=== PATIENT | female | born 1930 | race Caucasian/White ===

== ENCOUNTER 2016-06-28 14:25 | Inpatient (IN) ==
[2016-06-28 15:05] VITALS: BMI 19.3
[2016-06-28] MEDS ORDERED: NITROSTAT SL PRN (15:25)
[2016-06-28 15:33] LABS: BASOPHILS # (AUTO) 0.1 K/uL (0-0.2); BASOPHILS % (AUTO) 0.4 % (0.0-3.0); EOSINOPHILS # (AUTO) 0.5 K/ul (0.0-0.7); EOSINOPHILS % (AUTO) 3.9 % (0.0-7.0); HEMATOCRIT 47.2 % (37.0-47.0); HEMOGLOBIN 14.5 g/dl (12.0-16.0); IMMATURE GRANULOCYTE % (AUTO) 0.8 % (0.0-5.0); LYMPHOCYTES # (AUTO) 2.2 K/uL (0.60-3.4); LYMPHOCYTES % (AUTO) 19.6 (10.0-50.0); MEAN CORPUSCULAR HEMOGLOBIN 29.1 pg (27.0-31.0); MEAN CORPUSCULAR HGB CONC 30.7 (31.8-35.4); MEAN CORPUSCULAR VOLUME 94.6 fl (81.0-99.0); MONOCYTES # (AUTO) 1.1 K/uL (0.4-2.0); NEUTROPHILS # (AUTO) 7.4 K/ul (2.0-6.9); NEUTROPHILS % (AUTO) 65.3; PLATELET COUNT 208 10^3/uL (140-440); RED BLOOD COUNT 4.99 10^6/ul (4.20-5.40)
--- NOTE | 2016-06-28 15:40 | DI ---
EXAM: CHEST FRONTAL VIEW HISTORY: Cough and shortness of breath. COMPARISON: 01/23/2015 FINDINGS: Stable cardiomegaly. Sternotomy wires are noted. Severe aortic atherosclerosis. Right- sided pacemaker unit is stable. No evidence of active congestive heart failure, pneumothorax or ple ural fluid. No definite consolidated pneumonia on this limited portable exam. IMPRESSION: No obvious acute process. Managing the patient on a clinical basis is recommended.
[2016-06-28 15:50] LABS: ALBUMIN 3.5 g/dL (3.4-5.0); ALBUMIN/GLOBULIN RATIO 0.88; ANION GAP 13.7; BILIRUBIN,TOTAL 0.77 mg/dL (0.00-1.20); BUN/CREATININE RATIO 26.22; CALCIUM 10.2 mg/dL (8.2-10.2); CREATININE 1.22 mg/dL (0.60-1.30); POTASSIUM 4.7 mmol/L (3.5-5.10); TOTAL PROTEIN 7.5 g/dL (5.8-8.1)
[2016-06-28] MEDS: ARICEPT PO SCH (16:29)
[2016-06-28] MEDS: DECADRON 4 MG/ML SDV IM SCH (16:30)
[2016-06-28] MEDS: LOVENOX SUBCUT SCH (16:31)
[2016-06-28] MEDS: ROCEPHIN 1 GM in SODIUM CHLORIDE 50 ML IV SCH (16:56)
[2016-06-28] MEDS: BYSTOLIC PO SCH (20:57)
[2016-06-28] MEDS: ATIVAN PO SCH (20:57)
[2016-06-28] MEDS: OMEGA-3 FISH OIL PO SCH (20:57)
[2016-06-28] MEDS: COZAAR PO SCH (20:57)
[2016-06-28] MEDS ORDERED: COZAAR PO SCH (21:00)
[2016-06-28] MEDS ORDERED: NEBIVOLOL HCL 5 MG PO SCH (21:00)
[2016-06-29 05:27] LABS: BASOPHILS # (AUTO) 0.1 K/uL (0-0.2); BASOPHILS % (AUTO) 0.8 % (0.0-3.0); EOSINOPHILS % (AUTO) 0.4 % (0.0-7.0); HEMATOCRIT 43.2 % (37.0-47.0); HEMOGLOBIN 13.1 g/dl (12.0-16.0); IMMATURE GRANULOCYTE % (AUTO) 0.7 % (0.0-5.0); LYMPHOCYTES # (AUTO) 1.5 K/uL (0.60-3.4); LYMPHOCYTES % (AUTO) 20.9 (10.0-50.0); MEAN CORPUSCULAR HEMOGLOBIN 28.6 pg (27.0-31.0); MEAN CORPUSCULAR HGB CONC 30.3 (31.8-35.4); MEAN CORPUSCULAR VOLUME 94.3 fl (81.0-99.0); MONOCYTES # (AUTO) 0.4 K/uL (0.4-2.0); MONOCYTES % (AUTO) 5.8 (0-10); NEUTROPHILS # (AUTO) 5.2 K/ul (2.0-6.9); NEUTROPHILS % (AUTO) 71.4; PLATELET COUNT 208 10^3/uL (140-440); RED BLOOD COUNT 4.58 10^6/ul (4.20-5.40); WHITE BLOOD COUNT 7.22 K/ul (4.6-10.2)
[2016-06-29 05:46] LABS: ALBUMIN 3.2 g/dL (3.4-5.0); ALBUMIN/GLOBULIN RATIO 0.89; ANION GAP 12.7; BILIRUBIN,TOTAL 0.65 mg/dL (0.00-1.20); BUN/CREATININE RATIO 27.72; CALCIUM 9.3 mg/dL (8.2-10.2); CREATININE 1.01 mg/dL (0.60-1.30); POTASSIUM 4.7 mmol/L (3.5-5.10); TOTAL PROTEIN 6.8 g/dL (5.8-8.1)
[2016-06-29] MEDS: LASIX TAB PO SCH (06:19)
[2016-06-29] MEDS ORDERED: OMEGA PO SCH ×22 (09:00)
[2016-06-29] MEDS ORDERED: [UNRECOGNIZED DRUG - OTHER] PO SCH ×22 (09:00)
[2016-06-29] MEDS ORDERED: LASIX TAB PO SCH (09:00)
[2016-06-29] MEDS ORDERED: NON-FORMULARY MEDICATION (Potassium Chloride [Klor-Con 10] 10 MEQ) PO SCH ×22 (09:00)
[2016-06-29] MEDS ORDERED: FISH OIL PO SCH ×22 (09:00)
[2016-06-29] MEDS ORDERED: VANCOMYCIN 1 GM in SODIUM CHLORIDE 250 ML IV ONE (09:00)
[2016-06-29] MEDS ORDERED: FATTY ACIDS PO SCH ×22 (09:00)
[2016-06-29] MEDS ORDERED: NON-FORMULARY MEDICATION (Escitalopram Oxalate [Lexapro] 20 MG) PO SCH ×22 (09:00)
[2016-06-29] MEDS: ROCEPHIN 1 GM in SODIUM CHLORIDE 50 ML IV SCH (10:35)
[2016-06-29] MEDS: DIFLUCAN PO SCH (10:38)
[2016-06-29] MEDS: OMEGA-3 FISH OIL PO SCH ×2 (10:38→21:54)
[2016-06-29] MEDS: PRAVACHOL PO SCH (10:39)
[2016-06-29] MEDS: BYSTOLIC PO SCH ×2 (10:39→21:54)
[2016-06-29] MEDS: MICRO-K CAP PO SCH (10:39)
[2016-06-29] MEDS: VITAMIN D PO SCH (10:39)
[2016-06-29] MEDS: COZAAR PO SCH ×2 (10:39→21:55)
[2016-06-29] MEDS: ZYRTEC PO SCH (10:39)
[2016-06-29] MEDS: LANOXIN PO SCH (10:40)
[2016-06-29] MEDS: LOVENOX SUBCUT SCH (10:44)
[2016-06-29] MEDS: LEXAPRO PO SCH (10:45)
[2016-06-29] MEDS: DECADRON 4 MG/ML SDV IM SCH (10:45)
[2016-06-29] MEDS: LOTRISONE 15 GM TP SCH ×2 (10:46→21:53)
[2016-06-29 12:40] LABS: BILIRUBIN,URINE Negative (NEGATIVE); KETONES,URINE Negative (NEGATIVE); LEUKOCYTE ESTERASE ,URINE Negative (NEGATIVE); NITRITE,URINE Negative (NEGATIVE); PROTEIN,URINE Negative (NEGATIVE); URINE, BLOOD Negative (NEGATIVE)
[2016-06-29 12:55] LABS: ADD URINE MICROSCOPIC NO
[2016-06-29] MEDS: ARICEPT PO SCH (17:42)
[2016-06-29] MEDS: NORCO 5-325 PO PRN (21:54)
[2016-06-29] MEDS: ATIVAN PO SCH (21:55)
[2016-06-30] MEDS: LASIX TAB PO SCH (05:54)
[2016-06-30 06:13] LABS: BASOPHILS # (AUTO) 0.1 K/uL (0-0.2); BASOPHILS % (AUTO) 0.5 % (0.0-3.0); EOSINOPHILS % (AUTO) 0.3 % (0.0-7.0); HEMOGLOBIN 13.5 g/dl (12.0-16.0); IMMATURE GRANULOCYTE % (AUTO) 0.6 % (0.0-5.0); LYMPHOCYTES # (AUTO) 1.5 K/uL (0.60-3.4); LYMPHOCYTES % (AUTO) 13.5 (10.0-50.0); MEAN CORPUSCULAR HEMOGLOBIN 28.4 pg (27.0-31.0); MEAN CORPUSCULAR HGB CONC 30.7 (31.8-35.4); MEAN CORPUSCULAR VOLUME 92.6 fl (81.0-99.0); MONOCYTES # (AUTO) 0.9 K/uL (0.4-2.0); MONOCYTES % (AUTO) 7.8 (0-10); NEUTROPHILS # (AUTO) 8.4 K/ul (2.0-6.9); NEUTROPHILS % (AUTO) 77.3; PLATELET COUNT 192 10^3/uL (140-440); RED BLOOD COUNT 4.75 10^6/ul (4.20-5.40); WHITE BLOOD COUNT 10.91 K/ul (4.6-10.2)
[2016-06-30 06:38] LABS: ALBUMIN 3.3 g/dL (3.4-5.0); ALBUMIN/GLOBULIN RATIO 0.83; ANION GAP 14.2; BILIRUBIN,TOTAL 0.58 mg/dL (0.00-1.20); BUN/CREATININE RATIO 27.72; CALCIUM 9.4 mg/dL (8.2-10.2); CREATININE 1.01 mg/dL (0.60-1.30); POTASSIUM 4.2 mmol/L (3.5-5.10); TOTAL PROTEIN 7.3 g/dL (5.8-8.1)
[2016-06-30] MEDS ORDERED: COZAAR PO SCH (08:31)
[2016-06-30] MEDS: LOTRISONE 15 GM TP SCH ×2 (09:34→21:48)
[2016-06-30] MEDS: LANOXIN PO SCH (09:36)
[2016-06-30] MEDS: ZYRTEC PO SCH (09:36)
[2016-06-30] MEDS: PRAVACHOL PO SCH (09:36)
[2016-06-30] MEDS: COZAAR PO SCH ×2 (09:36→21:49)
[2016-06-30] MEDS: LEXAPRO PO SCH (09:36)
[2016-06-30] MEDS: OMEGA-3 FISH OIL PO SCH ×2 (09:36→21:49)
[2016-06-30] MEDS: BYSTOLIC PO SCH ×2 (09:37→21:49)
[2016-06-30] MEDS: MICRO-K CAP PO SCH (09:37)
[2016-06-30] MEDS: NORVASC PO SCH (09:37)
[2016-06-30] MEDS: VITAMIN D PO SCH (09:37)
[2016-06-30] MEDS: LOVENOX SUBCUT SCH (09:38)
[2016-06-30] MEDS: ROCEPHIN 1 GM in SODIUM CHLORIDE 50 ML IV SCH (09:42)
--- NOTE | 2016-06-30 09:46 | HP ---
DATE OF SERVICE: 06/28/16 REASON FOR HOSPITALIZATION/HISTORY OF PRESENT ILLNESS: Came for left foot redness/ swelling for 3 weeks red/swollen- no open area- complains of mild pain. REVIEW OF SYSTEMS: CONSTITUTIONAL: No fever, no fatigue. HEENT: No sinus drainage, no sore throat. RESPIRATORY: No cough, no congestion. CARDIOVASCULAR: No atypical chest pain for coronary artery disease. No angina , CHF symptoms, palpitations. Shortness of breath- stable. GASTROINTESTINAL: No melena or abdominal pain. No GERD. GENITOURINARY: No hematuria, no prostatism, no polyuria. COOK VEGETABLE: No blackout, no dizziness, no headache, no double vision. Gait: Walker MUSCULOSKELETAL: Osteoarthritis pain, no joint swelling. ENDOCRINE: No weight loss, no weight gain. SKIN: Not dry, no rash. PSYCHIATRIC: Not anxious, no depression, no suicidal thoughts, no homicidal thoughts. SOCIAL HISTORY: Marital Status: and 4 children. Alcohol Usage: No. Tobacco Usage: No. Family History: Father 84 year old, Mother - Stroke, Brothers 6 - , Sisters 3 MEDICAL HISTORY/ SURGICAL HISTORY: Neck(Carotids) Gallbladder Cataracts Nose-CA 1984 Colonoscopy 01/2011 Dr. Weathers Dementia Atrial fibrillation COPD Depression Aortic stenosis Congestive heart failure Hypertension Chronic kidney Disease Diabetes Mellitus, type 2 MEDICATIONS: Pravachol 40mg PO daily Losartan 50mg take 0.5 tablet PO twice a day Lasix 40mg PO daily Klor-Con 10meq PO daily Lexapro 20mg PO daily Bystolic 10mg 0.5 tablet twice a day Kenalog 0.025% cream apply a thin layer to affect area Lorazepam 0.5mg tablet PO daily Digoxin 125mcg PO daily skip Sundays Nitroglycerin 0.4mg PO sublingual PRN Aricept 10mg PO daily at bedtime Aricept 5mg PO daily in evening for 2 weeks [place] 5-325mg PO twice a day PRN Cetirizine 10mg PO daily Lovaza 1gram take two PO twice a day Vitamin D PO daily ALLERGIES: No known allergies PHYSICAL EXAMINATION: V/S: Pulse 62, blood pressure 140/50 and pulse ox 94%. GENERAL APPEARANCE: Oriented times three. HEENT: Normal. NECK: No JVP, no bruits. RESPIRATORY: Lungs are clear. CARDIOVASCULAR: S1, S2, no S3, no murmurs. No cyanosis, clubbing. No ascites. GI/ABDOMEN: No tenderness. Bowel sounds are active. EXTREMITIES: edema and equal. Left foot redness/ swollen. Tender. Pulse decreased. COOK VEGETABLE: Deep tendon reflexes, sensory, motor and gait all normal. RECTAL: Dr. Weathers 01/27/PELVIC: Mammogram 03/01 . ASSESSMENT: 1. Cellulitis, left foot 2. Dementia, vascular 3. Atrial fibrillation 4. GERD 5. Aortic stenosis, moderate 6. Congestive heart failure 7. Hypertension 8. Chronic kidney disease, stage 3 9. Diabetes Mellitus, type 2 10. Status post Cholecystectomy 11. Coronary bypass grafting, 2004 PLAN: 1. Admit 2. Even legs/ Mild elevation 3. CBC and CMP today and daily AM 4. Rocephin 1 gm IV now and 24 hours. 5. Continue all medications 6. Telemetry 7. EKG today 8. Diet regular 8. Urine analysis today 10. 1/2cc Decadron today and AM 11. Mac record from [facility] for cellulitis 12. Lovenox 30mg SUBCUT daily TIME SPENT: More than 70 minutes. MTDD
--- NOTE | 2016-06-30 10:12 | PN ---
DATE OF SERVICE: 06/29/16 SUBJECTIVE: The patient is an 86 year old female hospitalized with left foot cellulitis. The patient had similar problems and was hospitalized, left leg abscess to [facility] in early March 2016. The patient's cellulitis seems to contained now at the Dorsum of the leg foot. The patient doesn't have any red streaks, getting more localized. The patient's pain which she had is absent today. The skin surrounding the cellulitis looks better, less cracked and more moist. REVIEW OF SYSTEMS: CONSTITUTIONAL: No night sweats. No fatigue, malaise, lethargy. No fever or chills. HEENT: Eyes: No visual changes. No eye pain. No eye discharge. ENT: No runny nose. No epistaxis. No sinus pain. No sore throat. No odynophagia. No congestion. RESPIRATORY: No cough, no congestion. No hemoptysis. CARDIOVASCULAR: No angina symptoms. No CHF symptoms. No atypical chest pain for CAD. No palpitations. No shortness of breath. GASTROINTESTINAL: No abdominal pain. No nausea or vomiting. No diarrhea or constipation. No hematemesis. No hematochezia. GENITOURINARY: No urgency. No frequency. No dysuria. No hematuria. No obstructive symptoms. No discharge. No pain. No significant abnormal bleeding. MUSCULOSKELETAL: No musculoskeletal pain; no joint swelling. NEUROLOGICAL: No headache. No neck pain. No syncope. No seizures. No dizziness. Confused last night but doesn't have any pain like she had when I had seen her in the office. PSYCHIATRIC: Not anxious. No depression. No suicidal thoughts. No homicidal thoughts. SKIN: No rash. No lesions. No wounds. ENDOCRINE: No unexplained weight loss. No weight gain. HEMATOLOGIC/LYMPHATIC: No anemia. No purpura. No petechiae. No prolonged or excessive bleeding. No palpable lymph nodes. PHYSICAL EXAMINATION: GENERAL: The patient is oriented to place and person. VITAL SIGNS: Temperature 97.8, pulse 60, respiratory rate 18, blood pressure 170/70 and pulse ox 98%. HEENT: Head normocephalic, atraumatic. Eyes: Extraocular muscles are intact. Pupils are equal, round and reactive to light and accommodation. Ears: No lesions. Nose appeared normal. Throat: No exudate or erythema. NECK: Supple. No JVD, no carotid bruit. No lymphadenopathy or thyromegaly. LUNGS: Decreased breath sounds but clear to auscultation. Percussion note normal. Chest symmetrical. HEART: S1, S2, no S3. No murmurs. No cyanosis or clubbing. No ascites. Pulses: Dorsalis pedis and posterior tibial pulses +1 to +2 both sides. ABDOMEN: Soft. Nontender. Bowel sounds active. No CVA tenderness. No mass felt. EXTREMITIES: No edema. Full range of motion of all extremities, equal. NEUROLOGIC: No focal deficit. Cranial nerves II through XII are grossly intact. No headache, no double vision or headache. SKIN: Not dry. Intact. Turgor - normal. LYMPHATIC: No palpable lymph nodes/no lymphedema. MUSCULOSKELETAL: Normal joints with no swelling. Muscle tone is normal. LABS: Hgb 13, hct 43, WBC 7,200 normal differential, creatinine 1, BUN 28 and potassium 4. ASSESSMENT: 1. Cellulitis, left foot 2. Peripheral arterial disease 3. Dementia 4. Coronary artery disease 5. History of CHF 6. Aortic stenosis 7. Dyslipidemia 8. Depression PLAN: 1. Continue Decadron IM 2. Diflucan added 100mg for patient's skin changes are quite typical of fungal infection of the skin 3. Continue Rocephin 4. Will add Vancomycin CONDITION: Stable TIME SPENT: More than 30 minutes. Plan and coordination of the patient's care discussed in the presence of nurse. ANGEL
[2016-06-30] MEDS: VANCOMYCIN 750 MG in SODIUM CHLORIDE 250 ML IV SCH (10:53)
[2016-06-30] MEDS: ARICEPT PO SCH (16:30)
[2016-06-30] MEDS: ATIVAN PO SCH (21:49)
[2016-06-30] MEDS: NORCO 5-325 PO PRN (21:49)
[2016-07-01 06:08] LABS: BASOPHILS # (AUTO) 0.1 K/uL (0-0.2); BASOPHILS % (AUTO) 0.9 % (0.0-3.0); EOSINOPHILS # (AUTO) 0.3 K/ul (0.0-0.7); EOSINOPHILS % (AUTO) 2.7 % (0.0-7.0); HEMATOCRIT 43.3 % (37.0-47.0); HEMOGLOBIN 13.3 g/dl (12.0-16.0); LYMPHOCYTES # (AUTO) 1.9 K/uL (0.60-3.4); MEAN CORPUSCULAR HEMOGLOBIN 28.9 pg (27.0-31.0); MEAN CORPUSCULAR HGB CONC 30.7 (31.8-35.4); MEAN CORPUSCULAR VOLUME 93.9 fl (81.0-99.0); MONOCYTES # (AUTO) 1.1 K/uL (0.4-2.0); MONOCYTES % (AUTO) 10.7 (0-10); NEUTROPHILS % (AUTO) 66.7; PLATELET COUNT 192 10^3/uL (140-440); RED BLOOD COUNT 4.61 10^6/ul (4.20-5.40); WHITE BLOOD COUNT 10.48 K/ul (4.6-10.2)
[2016-07-01] MEDS: NORCO 5-325 PO PRN (06:16)
[2016-07-01] MEDS: LASIX TAB PO SCH (06:16)
[2016-07-01 06:27] LABS: ALBUMIN 3.2 g/dL (3.4-5.0); ALBUMIN/GLOBULIN RATIO 0.89; ANION GAP 15.9; BILIRUBIN,TOTAL 0.49 mg/dL (0.00-1.20); BUN/CREATININE RATIO 31.48; CALCIUM 9.1 mg/dL (8.2-10.2); CREATININE 1.08 mg/dL (0.60-1.30); POTASSIUM 3.9 mmol/L (3.5-5.10); TOTAL PROTEIN 6.8 g/dL (5.8-8.1)
[2016-07-01] MEDS: ROCEPHIN 1 GM in SODIUM CHLORIDE 50 ML IV SCH (09:06)
[2016-07-01] MEDS: OMEGA-3 FISH OIL PO SCH ×2 (09:07→20:27)
[2016-07-01] MEDS: LEXAPRO PO SCH (09:07)
[2016-07-01] MEDS: LOVENOX SUBCUT SCH (09:07)
[2016-07-01] MEDS: DIFLUCAN PO SCH (09:08)
[2016-07-01] MEDS: NORVASC PO SCH (09:08)
[2016-07-01] MEDS: VITAMIN D PO SCH (09:08)
[2016-07-01] MEDS: MICRO-K CAP PO SCH (09:08)
[2016-07-01] MEDS: LANOXIN PO SCH (09:08)
[2016-07-01] MEDS: PRAVACHOL PO SCH (09:08)
[2016-07-01] MEDS: COZAAR PO SCH ×2 (09:08→20:27)
[2016-07-01] MEDS: BYSTOLIC PO SCH ×2 (09:08→20:27)
[2016-07-01] MEDS: LOTRISONE 15 GM TP SCH ×2 (09:09→20:26)
[2016-07-01] MEDS: ZYRTEC PO SCH (09:09)
[2016-07-01] MEDS: VANCOMYCIN 750 MG in SODIUM CHLORIDE 250 ML IV SCH (09:50)
--- NOTE | 2016-07-01 11:19 | PN ---
DATE OF SERVICE: 06/30/16 SUBJECTIVE: 86-year-old white female hospitalized with cellulitis of the left dorsum of the foot. The patient's cellulitis is getting more localized; still no evidence of any pus obviously noted. She doesn't have any pain anymore. She is confused at times, still talking to herself but oriented to person and place. REVIEW OF SYSTEMS: CONSTITUTIONAL: No night sweats. No fatigue, malaise, lethargy. No fever or chills. HEENT: Eyes: No visual changes. No eye pain. No eye discharge. ENT: No runny nose. No epistaxis. No sinus pain. No sore throat. No odynophagia. No congestion. RESPIRATORY: No cough, no congestion. No hemoptysis. CARDIOVASCULAR: No angina symptoms. No CHF symptoms. No atypical chest pain for CAD. No palpitations. No shortness of breath. GASTROINTESTINAL: No abdominal pain. No nausea or vomiting. No diarrhea or constipation. No hematemesis. No hematochezia. GENITOURINARY: No urgency. No frequency. No dysuria. No hematuria. No obstructive symptoms. No discharge. No pain. No significant abnormal bleeding. MUSCULOSKELETAL: No musculoskeletal pain; no joint swelling. NEUROLOGICAL: Dementia with fluctuation in mental status. No headache. No neck pain. No syncope. No seizures. No dizziness. PSYCHIATRIC: Not anxious. No depression. No suicidal thoughts. No homicidal thoughts. SKIN: Redness top of left foot. Petechiae to left foot, left leg, right foot and right leg. ENDOCRINE: No unexplained weight loss. No weight gain. HEMATOLOGIC/LYMPHATIC: No anemia. No purpura. No petechiae. No prolonged or excessive bleeding. No palpable lymph nodes. PHYSICAL EXAMINATION: VITAL SIGNS: Temperature 97.6, pulse 65, respiratory rate 21, BP 190/70, pulse ox 97%. HEENT: Head normocephalic, atraumatic. Eyes: Extraocular muscles are intact. Pupils are equal, round and reactive to light and accommodation. Ears: No lesions. Nose appeared normal. Throat: No exudate or erythema. NECK: Supple. No JVD, no carotid bruit. No lymphadenopathy or thyromegaly. LUNGS: Decreased breath sounds but clear to auscultation. Percussion note normal. Chest symmetrical. HEART: S1, S2, no S3. No murmurs. No cyanosis or clubbing. No ascites. Pulses: Dorsalis pedis and posterior tibial pulses +1 to +2 both sides. ABDOMEN: Soft. Nontender. Bowel sounds active. No CVA tenderness. No mass felt. EXTREMITIES: Full range of motion of all extremities, equal. NEUROLOGIC: Alert; confused. No focal deficit. Cranial nerves II through XII are grossly intact. No headache, no double vision or headache. SKIN: Not dry. Intact. Turgor - normal. LYMPHATIC: No palpable lymph nodes/no lymphedema. MUSCULOSKELETAL: Normal joints with no swelling. Muscle tone is normal. LABS: Hemoglobin 13.5, hematocrit 44, WBC 10,900, normal differential. Creatinine 1, BUN 20, potassium 4.2. ASSESSMENT: 1. CELLULITIS OF THE LEFT FOOT 2. DEMENTIA 3. PERIPHERAL ARTERIAL DISEASE 4. DIABETES MELLITUS 5. CHF PLAN: 1. Continue IV antibiotics. 2. Continue to monitor CBC and CMP. OF NOTE: The patient's skin around the cellulitis is a lot better, is getting smoother and more healthier looking. The patient has been on Diflucan and Lotrisone cream. TIME SPENT: More than 30 minutes. Plan and coordination of the patient's care discussed in the presence of nurse. ANGEL
[2016-07-01] MEDS: ARICEPT PO SCH (17:06)
[2016-07-01] MEDS: ATIVAN PO SCH (20:26)
[2016-07-01] MEDS: NORCO 5-325 PO SCH (20:27)
[2016-07-02] MEDS: LASIX TAB PO SCH (05:35)
[2016-07-02 05:52] LABS: BASOPHILS # (AUTO) 0.1 K/uL (0-0.2); EOSINOPHILS # (AUTO) 0.4 K/ul (0.0-0.7); EOSINOPHILS % (AUTO) 4.4 % (0.0-7.0); HEMOGLOBIN 13.7 g/dl (12.0-16.0); IMMATURE GRANULOCYTE % (AUTO) 1.1 % (0.0-5.0); LYMPHOCYTES # (AUTO) 1.7 K/uL (0.60-3.4); LYMPHOCYTES % (AUTO) 17.7 (10.0-50.0); MEAN CORPUSCULAR HEMOGLOBIN 29.3 pg (27.0-31.0); MEAN CORPUSCULAR HGB CONC 31.1 (31.8-35.4); MONOCYTES # (AUTO) 1.3 K/uL (0.4-2.0); MONOCYTES % (AUTO) 12.7 (0-10); NEUTROPHILS # (AUTO) 6.2 K/ul (2.0-6.9); NEUTROPHILS % (AUTO) 63.1; PLATELET COUNT 183 10^3/uL (140-440); RED BLOOD COUNT 4.68 10^6/ul (4.20-5.40); WHITE BLOOD COUNT 9.81 K/ul (4.6-10.2)
[2016-07-02 06:23] LABS: ALBUMIN 3.1 g/dL (3.4-5.0); ALBUMIN/GLOBULIN RATIO 0.89; BILIRUBIN,TOTAL 0.6 mg/dL (0.00-1.20); BUN/CREATININE RATIO 26.95; CREATININE 1.15 mg/dL (0.60-1.30); TOTAL PROTEIN 6.6 g/dL (5.8-8.1)
[2016-07-02] MEDS: LANOXIN PO SCH (08:13)
[2016-07-02] MEDS: ROCEPHIN 1 GM in SODIUM CHLORIDE 50 ML IV SCH (08:13)
[2016-07-02] MEDS: COZAAR PO SCH ×2 (08:16→20:28)
[2016-07-02] MEDS: LEXAPRO PO SCH (08:16)
[2016-07-02] MEDS: PRAVACHOL PO SCH (08:17)
[2016-07-02] MEDS: VITAMIN D PO SCH (08:17)
[2016-07-02] MEDS: OMEGA-3 FISH OIL PO SCH ×2 (08:17→20:27)
[2016-07-02] MEDS: NORVASC PO SCH (08:17)
[2016-07-02] MEDS: BYSTOLIC PO SCH ×2 (08:17→20:27)
[2016-07-02] MEDS: ZYRTEC PO SCH (08:17)
[2016-07-02] MEDS: MICRO-K CAP PO SCH (08:17)
[2016-07-02] MEDS: LOVENOX SUBCUT SCH (08:18)
[2016-07-02] MEDS: LOTRISONE 15 GM TP SCH ×2 (08:18→20:28)
[2016-07-02] MEDS: VANCOMYCIN 750 MG in SODIUM CHLORIDE 250 ML IV SCH (12:22)
[2016-07-02] MEDS: ARICEPT PO SCH (17:17)
[2016-07-02] MEDS: ATIVAN PO SCH (20:28)
[2016-07-02] MEDS: NORCO 5-325 PO SCH (20:28)
[2016-07-03] MEDS: LASIX TAB PO SCH (05:45)
[2016-07-03] MEDS: OMEGA-3 FISH OIL PO SCH ×2 (08:18→20:23)
[2016-07-03] MEDS: MICRO-K CAP PO SCH (08:19)
[2016-07-03] MEDS: VITAMIN D PO SCH (08:19)
[2016-07-03] MEDS: LEXAPRO PO SCH (08:19)
[2016-07-03] MEDS: PRAVACHOL PO SCH (08:19)
[2016-07-03] MEDS: NORVASC PO SCH (08:19)
[2016-07-03] MEDS: ZYRTEC PO SCH (08:19)
[2016-07-03] MEDS: BYSTOLIC PO SCH ×2 (08:19→20:23)
[2016-07-03] MEDS: DIFLUCAN PO SCH (08:19)
[2016-07-03] MEDS: LOVENOX SUBCUT SCH (08:20)
[2016-07-03] MEDS: ROCEPHIN 1 GM in SODIUM CHLORIDE 50 ML IV SCH (08:20)
[2016-07-03] MEDS: LOTRISONE 15 GM TP SCH ×2 (08:20→21:23)
[2016-07-03] MEDS: COZAAR PO SCH ×2 (08:20→20:23)
[2016-07-03 09:01] LABS: BASOPHILS # (AUTO) 0.1 K/uL (0-0.2); BASOPHILS % (AUTO) 0.8 % (0.0-3.0); EOSINOPHILS # (AUTO) 0.5 K/ul (0.0-0.7); EOSINOPHILS % (AUTO) 5.2 % (0.0-7.0); HEMATOCRIT 48.9 % (37.0-47.0); HEMOGLOBIN 14.8 g/dl (12.0-16.0); IMMATURE GRANULOCYTE % (AUTO) 1.2 % (0.0-5.0); LYMPHOCYTES # (AUTO) 1.9 K/uL (0.60-3.4); LYMPHOCYTES % (AUTO) 19.2 (10.0-50.0); MEAN CORPUSCULAR HEMOGLOBIN 28.6 pg (27.0-31.0); MEAN CORPUSCULAR HGB CONC 30.3 (31.8-35.4); MEAN CORPUSCULAR VOLUME 94.4 fl (81.0-99.0); MONOCYTES # (AUTO) 1.1 K/uL (0.4-2.0); MONOCYTES % (AUTO) 11.2 (0-10); NEUTROPHILS % (AUTO) 62.4; PLATELET COUNT 190 10^3/uL (140-440); RED BLOOD COUNT 5.18 10^6/ul (4.20-5.40); WHITE BLOOD COUNT 9.65 K/ul (4.6-10.2)
[2016-07-03] MEDS: VANCOMYCIN 750 MG in SODIUM CHLORIDE 250 ML IV SCH (09:10)
[2016-07-03 09:25] LABS: ALBUMIN 3.4 g/dL (3.4-5.0); ALBUMIN/GLOBULIN RATIO 0.85; ANION GAP 15.2; BILIRUBIN,TOTAL 0.56 mg/dL (0.00-1.20); BUN/CREATININE RATIO 26.49; CALCIUM 9.5 mg/dL (8.2-10.2); CREATININE 1.17 mg/dL (0.60-1.30); POTASSIUM 4.2 mmol/L (3.5-5.10); TOTAL PROTEIN 7.4 g/dL (5.8-8.1)
[2016-07-03] MEDS: BENADRYL PO PRN (10:09)
[2016-07-03] MEDS: ARICEPT PO SCH (17:04)
[2016-07-03] MEDS: ATIVAN PO SCH (20:23)
[2016-07-03] MEDS: NORCO 5-325 PO SCH (20:23)
[2016-07-04 05:10] LABS: BASOPHILS # (AUTO) 0.1 K/uL (0-0.2); BASOPHILS % (AUTO) 0.9 % (0.0-3.0); EOSINOPHILS # (AUTO) 0.5 K/ul (0.0-0.7); EOSINOPHILS % (AUTO) 5.2 % (0.0-7.0); HEMATOCRIT 43.4 % (37.0-47.0); HEMOGLOBIN 13.3 g/dl (12.0-16.0); IMMATURE GRANULOCYTE % (AUTO) 1.9 % (0.0-5.0); LYMPHOCYTES # (AUTO) 1.9 K/uL (0.60-3.4); LYMPHOCYTES % (AUTO) 19.6 (10.0-50.0); MEAN CORPUSCULAR HEMOGLOBIN 28.8 pg (27.0-31.0); MEAN CORPUSCULAR HGB CONC 30.6 (31.8-35.4); MEAN CORPUSCULAR VOLUME 93.9 fl (81.0-99.0); MONOCYTES % (AUTO) 10.5 (0-10); NEUTROPHILS % (AUTO) 61.9; PLATELET COUNT 183 10^3/uL (140-440); RED BLOOD COUNT 4.62 10^6/ul (4.20-5.40); WHITE BLOOD COUNT 9.66 K/ul (4.6-10.2)
[2016-07-04] MEDS: LASIX TAB PO SCH (05:31)
[2016-07-04 05:35] LABS: ALBUMIN 3.1 g/dL (3.4-5.0); ALBUMIN/GLOBULIN RATIO 0.86; ANION GAP 13.8; BILIRUBIN,TOTAL 0.5 mg/dL (0.00-1.20); BUN/CREATININE RATIO 28.84; CALCIUM 9.2 mg/dL (8.2-10.2); CREATININE 1.04 mg/dL (0.60-1.30); POTASSIUM 4.8 mmol/L (3.5-5.10); TOTAL PROTEIN 6.7 g/dL (5.8-8.1)
[2016-07-04] MEDS ORDERED: DIFLUCAN PO STA (08:20)
[2016-07-04] MEDS: LOTRISONE 15 GM TP SCH ×2 (08:31→22:37)
[2016-07-04] MEDS: BYSTOLIC PO SCH ×2 (08:31→22:40)
[2016-07-04] MEDS: LANOXIN PO SCH (08:31)
[2016-07-04] MEDS: LOVENOX SUBCUT SCH (08:32)
[2016-07-04] MEDS: LEXAPRO PO SCH (08:32)
[2016-07-04] MEDS: NORVASC PO SCH (08:33)
[2016-07-04] MEDS: ZYRTEC PO SCH (08:33)
[2016-07-04] MEDS: VITAMIN D PO SCH (08:33)
[2016-07-04] MEDS: MICRO-K CAP PO SCH (08:33)
[2016-07-04] MEDS: OMEGA-3 FISH OIL PO SCH ×2 (08:33→22:40)
[2016-07-04] MEDS: ROCEPHIN 1 GM in SODIUM CHLORIDE 50 ML IV SCH (08:34)
[2016-07-04] MEDS: COZAAR PO SCH ×2 (08:34→22:40)
[2016-07-04] MEDS: PRAVACHOL PO SCH (08:34)
[2016-07-04] MEDS: VANCOMYCIN 500 MG in SODIUM CHLORIDE 100 ML IV SCH (09:56)
[2016-07-04] MEDS: BENADRYL PO PRN (11:36)
--- NOTE | 2016-07-04 11:55 | PN ---
DATE OF SERVICE: 07/02/16 SUBJECTIVE: The patient is sitting in the bed and not in any distress. Kelly is the nurse taking care of the patient. The patient pulled out the IV line and the patient gets confused at the night time otherwise no complaints. Left foot pain and swelling is a lot better. REVIEW OF SYSTEMS: CONSTITUTIONAL: No fever, no chills. HEENT: Normal. ENDOCRINE: No weight gain, no weight loss. CVS: No angina symptoms. No CHF symptoms. No palpitations. No atypical chest pain for CAD. No shortness of breath. No PND, no orthopnea. RESPIRATORY: No cough, no hemoptysis. GI: No nausea, no vomiting. No abdominal pain. : No hematuria. No polyuria. MUSCULOSKELETAL:. No joint swelling. PSYCHIATRIC: Not anxious. No depression. No suicidal thoughts. No homicidal thoughts. SKIN: Intact. No rash. PHYSICAL EXAMINATION: V/S: Blood pressure 166/64, respiratory rate 16, heart rate 67 and temperature 97.4. HEENT: Normocephalic, atraumatic. Ears, eyes, nose and throat normal. Mucosa dry. NECK: Supple. No JVD, no carotid bruit. No lymphadenopathy. LUNGS: Clear to auscultation. No rales or rhonchi. HEART: S1, S2 normal. No S3. No murmur, gallop or regurgitation. ABDOMEN: Soft, nontender. Bowel sounds active. No rigidity. No rebound or guarding. No CVA tenderness. EXTREMITIES: No clubbing, cyanosis or pedal edema. Left foot cellulitis. Swelling and redness has decreased non tender. MUSCULOSKELETAL: No joint swelling. NEUROLOGIC: Awake, alert, oriented times three. No focal deficit. LYMPHATIC: No lymph nodes palpable. SKIN: Intact. LABS: WBC 9.81, hgb 13.7, hct 44.0, plt count 183, sodium 138, potassium 4.0, chloride 101, bicarb 29, BUN 31 and creatinine 1.15. ASSESSMENT: 1. Cellulitis of the left foot. 2. Dementia 3. Peripheral arterial disease 4. Diabetes Mellitus 5. Congestive heart failure PLAN: 1. Continue IV Antibiotics 2. Keep Legs elevated. TIME SPENT: More than 30 minutes MTDD
--- NOTE | 2016-07-04 12:39 | PN ---
DATE OF SERVICE: 07/03/16 SUBJECTIVE: The patient was admitted with the left leg cellulitis. The patient had a good night and did not pull IV line. REVIEW OF SYSTEMS: CONSTITUTIONAL: No fever, no chills. HEENT: Normal. ENDOCRINE: No weight gain, no weight loss. CVS: No angina symptoms. No CHF symptoms. No palpitations. No atypical chest pain for CAD. No shortness of breath. No PND, no orthopnea. RESPIRATORY: No cough, no hemoptysis. GI: No nausea, no vomiting. No abdominal pain. : No hematuria. No polyuria. MUSCULOSKELETAL:. No joint swelling. PSYCHIATRIC: Not anxious. No depression. No suicidal thoughts. No homicidal thoughts. SKIN: Intact. No rash. PHYSICAL EXAMINATION: V/S: Blood pressure 180/72, respiratory rate 20, heart rate 99 and temperature 96.7. HEENT: Normocephalic, atraumatic. Ears, eyes, nose and throat normal. Mucosa dry. NECK: Supple. No JVD, no carotid bruit. No lymphadenopathy. LUNGS: Clear to auscultation. No rales or rhonchi. HEART: S1, S2 normal. No S3. No murmur, gallop or regurgitation. ABDOMEN: Soft, nontender. Bowel sounds active. No rigidity. No rebound or guarding. No CVA tenderness. EXTREMITIES: No clubbing, cyanosis or pedal edema. Left foot cellulitis and redness and swelling is a lot improved. Skin is almost normal looking. Non- tender. Tibial pulses. MUSCULOSKELETAL: No joint swelling. NEUROLOGIC: Awake, alert, oriented times three. No focal deficit. LYMPHATIC: No lymph nodes palpable. SKIN: Intact. LABS: WBC 8.65, hgb 14.8, hct 48.9, plt count 190, sodium 139, potassium 4.2, chloride 97, bicarb 31, BUN 31, creatinine 1.17 and Glucose 133. ASSESSMENT: 1. Left foot cellulitis 2. Alzheimer Dementia 3. Diabetes 4. Peripheral arterial disease 5. Hypertension Labile PLAN: 1. Continue Vancomycin 2. Keep the legs elevated. Will follow the patient in daily rounds. TIME SPENT: More than 30 minutes MTDD
--- NOTE | 2016-07-04 13:00 | PN ---
DATE OF SERVICE: 07/01/16 SUBJECTIVE: 86-year-old white female hospitalized with left foot cellulitis. The patient's cellulitis has been getting localized and less intense in color. The patient is feeling better. She is still confused at times but knows me but doesn't know the date, time or place. REVIEW OF SYSTEMS: CONSTITUTIONAL: No night sweats. No fatigue, malaise, lethargy. No fever or chills. HEENT: Eyes: No visual changes. No eye pain. No eye discharge. ENT: No runny nose. No epistaxis. No sinus pain. No sore throat. No odynophagia. No congestion. RESPIRATORY: No cough, no congestion. No hemoptysis. CARDIOVASCULAR: No angina symptoms. No CHF symptoms. No atypical chest pain for CAD. No palpitations. No shortness of breath. GASTROINTESTINAL: No abdominal pain. No nausea or vomiting. No diarrhea or constipation. No hematemesis. No hematochezia. GENITOURINARY: No urgency. No frequency. No dysuria. No hematuria. No obstructive symptoms. No discharge. No pain. No significant abnormal bleeding. MUSCULOSKELETAL: No musculoskeletal pain; no joint swelling. NEUROLOGICAL: Less confused today. No headache. No neck pain. No syncope. No seizures. No dizziness. PSYCHIATRIC: Not anxious. No depression. No suicidal thoughts. No homicidal thoughts. SKIN: Redness top of left foot. Skin is dry. ENDOCRINE: No unexplained weight loss. No weight gain. HEMATOLOGIC/LYMPHATIC: No anemia. No purpura. No petechiae. No prolonged or excessive bleeding. No palpable lymph nodes. PHYSICAL EXAMINATION: VITAL SIGNS: Temperature 98, pulse 60, respiratory rate 18, BP 148/77. Pulse ox 97%. HEENT: Head normocephalic, atraumatic. Eyes: Extraocular muscles are intact. Pupils are equal, round and reactive to light and accommodation. Ears: No lesions. Nose appeared normal. Throat: No exudate or erythema. NECK: Supple. No JVD, no carotid bruit. No lymphadenopathy or thyromegaly. LUNGS: Decreased breath sounds but clear to auscultation. HEART: S1, S2, no S3. No murmurs. No cyanosis or clubbing. No ascites. Pulses: Dorsalis pedis and posterior tibial pulses +1 to +2 both sides. ABDOMEN: Soft. Nontender. Bowel sounds active. No CVA tenderness. No mass felt. EXTREMITIES: Left foot skin is dry and flaky. No drainage or open areas noted. Full range of motion of all extremities, equal. NEUROLOGIC: No focal deficit. Cranial nerves II through XII are grossly intact. No headache, no double vision or headache. SKIN: Dry. Intact. Turgor - normal. LYMPHATIC: No palpable lymph nodes/no lymphedema. MUSCULOSKELETAL: Normal joints with no swelling. Muscle tone is normal. LAB REVIEW: Hemoglobin 13.3, hematocrit 43, WBC 10,000, normal differential. Creatinine 1, BUN 34, potassium 3.9. The patient looks drowsy, was given Cypress at 6 a.m. this morning. ASSESSMENT: 1. CELLULITIS LEFT FOOT SEEMS TO BE RESOLVING. 2. DEMENTIA. PLAN: 1. Decrease Lexapro dose to 10; 20 mg is too much for the patient's age. 2. Ativan continue 0.5 mg. 3. Cypress is to be given at night 9 p.m. Discontinue b.i.d. p.r.n. dose. 4. Lanoxin level. CONDITION: Stable. TIME SPENT: More than 30 minutes. Plan and coordination of the patient's care discussed in the presence of nurse. ANGEL
[2016-07-04] MEDS: ARTIFICIAL TEARS OPTH SOL OP PRN ×2 (15:50→22:40)
[2016-07-04] MEDS: ARICEPT PO SCH (16:56)
[2016-07-04] MEDS: NORCO 5-325 PO SCH (22:40)
[2016-07-04] MEDS: ATIVAN PO SCH (22:40)
[2016-07-05 04:28] LABS: BASOPHILS # (AUTO) 0.1 K/uL (0-0.2); BASOPHILS % (AUTO) 0.9 % (0.0-3.0); EOSINOPHILS # (AUTO) 0.5 K/ul (0.0-0.7); EOSINOPHILS % (AUTO) 4.6 % (0.0-7.0); HEMATOCRIT 41.3 % (37.0-47.0); HEMOGLOBIN 12.6 g/dl (12.0-16.0); IMMATURE GRANULOCYTE % (AUTO) 1.7 % (0.0-5.0); LYMPHOCYTES # (AUTO) 2.1 K/uL (0.60-3.4); LYMPHOCYTES % (AUTO) 19.2 (10.0-50.0); MEAN CORPUSCULAR HEMOGLOBIN 28.4 pg (27.0-31.0); MEAN CORPUSCULAR HGB CONC 30.5 (31.8-35.4); MEAN CORPUSCULAR VOLUME 93.2 fl (81.0-99.0); MONOCYTES # (AUTO) 1.2 K/uL (0.4-2.0); MONOCYTES % (AUTO) 11.2 (0-10); NEUTROPHILS # (AUTO) 6.9 K/ul (2.0-6.9); NEUTROPHILS % (AUTO) 62.4; PLATELET COUNT 183 10^3/uL (140-440); RED BLOOD COUNT 4.43 10^6/ul (4.20-5.40); WHITE BLOOD COUNT 11.01 K/ul (4.6-10.2)
[2016-07-05 04:53] LABS: ALBUMIN 3.1 g/dL (3.4-5.0); ALBUMIN/GLOBULIN RATIO 0.89; ANION GAP 13.1; BILIRUBIN,TOTAL 0.52 mg/dL (0.00-1.20); BUN/CREATININE RATIO 34.57; CALCIUM 9.1 mg/dL (8.2-10.2); CREATININE 1.07 mg/dL (0.60-1.30); POTASSIUM 4.1 mmol/L (3.5-5.10); TOTAL PROTEIN 6.6 g/dL (5.8-8.1)
[2016-07-05] MEDS: LASIX TAB PO SCH (05:51)
[2016-07-05] MEDS: MICRO-K CAP PO SCH (08:44)
[2016-07-05] MEDS: NORVASC PO SCH (08:44)
[2016-07-05] MEDS: LEXAPRO PO SCH (08:44)
[2016-07-05] MEDS: LANOXIN PO SCH (08:45)
[2016-07-05] MEDS: PRAVACHOL PO SCH (08:45)
[2016-07-05] MEDS: ARTIFICIAL TEARS OPTH SOL OP PRN (08:45)
[2016-07-05] MEDS: LOTRISONE 15 GM TP SCH (08:45)
[2016-07-05] MEDS: OMEGA-3 FISH OIL PO SCH (08:45)
[2016-07-05] MEDS: BYSTOLIC PO SCH (08:45)
[2016-07-05] MEDS: COZAAR PO SCH (08:45)
[2016-07-05] MEDS: VITAMIN D PO SCH (08:45)
[2016-07-05] MEDS: ZYRTEC PO SCH (08:46)
[2016-07-05] MEDS: ROCEPHIN 1 GM in SODIUM CHLORIDE 50 ML IV SCH (08:46)
[2016-07-05] MEDS: VANCOMYCIN 500 MG in SODIUM CHLORIDE 100 ML IV SCH (08:46)
[2016-07-05] MEDS: LOVENOX SUBCUT SCH (08:46)
[2016-07-05 10:25] VITALS: BP 104/44; TEMP 97.4
--- NOTE | 2016-07-05 11:04 | CM.DICTOOL ---
ADMISSION: 06/28/16 14:25 DISCHARGE: 2016 DATE OF SERVICE: 07/05/16 FINAL DIAGNOSIS Cellulitis of foot, left Hypertension Chronic kidney disease, stage 3 Diabetes Mellitus, type 2 Dementia, vascular GERD Aortic Stenosis, moderate Congestive Heart Failure CABG, 2004 Carotid Endarterectomy Atrial Fibrillation Pacemaker Cholecystectomy LAST VITALS Temp Pulse Resp BP Pulse Ox 97.9 F 88 16 168/84 H 95 07/05/16 06:00 07/05/16 08:45 07/05/16 06:00 07/05/16 06:00 07/05/16 06:00 ACTIVE MEDICATIONS Acetaminophen/Hydrocodone Bitart ([place] 5-325) 1 tab PO BEDTIME [facility] Last Admin: 07/04/16 22:40 Dose: 1 tab Amlodipine Besylate (Norvasc) 10 mg PO DAILY [facility] (new medication) Last Admin: 07/05/16 08:44 Dose: 10 mg Artificial Tears (Artificial Tears Opth Sonia) 2 drop OP Q3H PRN PRN Reason: Dry Eye ( new medication) Last Admin: 07/05/16 08:45 Dose: 2 drop Cetirizine HCl (Zyrtec) 10 mg PO DAILY [facility] Last Admin: 07/05/16 08:46 Dose: 10 mg Cholecalciferol (Vitamin D) 1,000 unit PO DAILY [facility] Last Admin: 07/05/16 08:45 Dose: 1,000 unit Digoxin (Lanoxin) 125 mcg PO MOTUWETHFRSA@0900 [facility] Last Admin: 07/05/16 08:45 Dose: 125 mcg Donepezil HCl (Aricept) 10 mg PO QPM [facility] Last Admin: 07/04/16 16:56 Dose: 10 mg Escitalopram Oxalate (Lexapro) 10 mg PO DAILY [facility] Last Admin: 07/05/16 08:44 Dose: 10 mg Fish Oil ([place]-3 Fish Oil) 2,000 mg PO BID [facility] Last Admin: 07/05/16 08:45 Dose: 2,000 mg Furosemide (Lasix Tab) 40 mg PO QDAC [facility] Last Admin: 07/05/16 05:51 Dose: 40 mg Lorazepam (Ativan) 0.5 mg PO BEDTIME [facility] Last Admin: 07/04/16 22:40 Dose: 0.5 mg Losartan Potassium (Cozaar) 50 mg PO BID [facility] Last Admin: 07/05/16 08:45 Dose: 50 mg ( dose increase) Nebivolol (Bystolic) 5 mg PO BID [facility] Last Admin: 07/05/16 08:45 Dose: 5 mg Nitroglycerin (Nitrostat) 0.4 mg SL Q5MIN X 3 DOSES PRN PRN Reason: Chest Pain Potassium Chloride (Micro-K Cap) 10 meq PO DAILY [facility] Last Admin: 07/05/16 08:44 Dose: 10 meq Pravastatin Sodium (Pravachol) 40 mg PO DAILY [facility] Last Admin: 07/05/16 08:45 Dose: 40 mg ALLERGIES No Known Allergies Allergy (Verified 08/16/14 06:09) NEW PRESCRIPTIONS: Keflex 500 mg TID for 7 days Namenda 10 mg at bedtime daily Clonidine 0.1 mg BID Artificial Tears Opth Solution 2 drop every 3 hours prn dry eyes Amlodipine 10 mg daily SMOKING: Not applicable DISEASE SPECIFIC EDUCATION: Not applicable, patient forgetful LAB REVIEW: 07/05/16 04:24 07/05/16 04:24 07/05/16 04:24: WBC 11.01 H, RBC 4.43, Hgb 12.6, Hct 41.3, MCV 93.2, MCH 28.4, MCHC 30.5 L, RDW Coeff of [place] 15.8 H, Plt Count 183, Immature Gran % (Auto) 1.7 , Neut % (Auto) 62.4, Lymph % (Auto) 19.2, [place] % (Auto) 11.2 H, Eos % (Auto) 4.6, Baso % (Auto) 0.9, Immature Gran # (Auto) 0.2, Neut # 6.9, Lymph # 2.1, [place] # 1.2, Eos # 0.5, Baso # 0.1, Sodium 137, Potassium 4.1, Chloride 100, Carbon Dioxide 28, Anion Gap 13.1, BUN 37 H, Creatinine 1.07, Estimated GFR ( MDRD) 49.00, BUN/Creatinine Ratio 34.57, Glucose 117 H, Calcium 9.1, Total Bilirubin 0.52, AST 49 H, ALT 49, Alkaline Phosphatase 101, Total Protein 6.6, Albumin 3.1 L, Globulin 3.5, Albumin/Globulin Ratio 0.89 PLAN: Discharge to [facility] Diet: Regular with boost plus or equivalent supplement BID Activity: May go to dining room for meals. Elevate legs when sitting in the chair and at night Medication changes: 1. Reduce Lasix to 20 mg daily 2. Cozaar has been increased to 50 mg BID Retirement Orders: Physical and Occupational Therapy Evaluation and Treat Vital Signs daily for one week, then weekly CBC, CMP in one week, then monthly Lipids, Lanoxin level every 6 months Decubitus Precautions Moisturize Skin daily Incontinent care prn [employer] Treasurer to see for optimal nutritional intake Ms. Eduardo is alert to person, but disoriented to time and place. She is cooperative with nursing care. She is independent with meals, but requires nursing assistance for bathing and dressing. She transfers to the chair and to the bathroom with assistance of one staff member. Meal intake is good at 75-100 %. The top of the left foot remains slightly swollen and dark red in color. No open area or drainage noted to the left foot. Scratches are noted to the arms, legs from patient scratching self due to dry skin. Ky Brown MD
--- NOTE | 2016-07-05 11:11 | PN ---
DATE OF SERVICE: 07/04/16 SUBJECTIVE: 86 year old white female hospitalized with cellulitis of the left foot, which has been resolving and it is more localized. No tenderness present on pressing. The patient has some neuropathy, but the patient had a very painful foot before. She is still demented, but oriented to place and person. REVIEW OF SYSTEMS: CONSTITUTIONAL: No night sweats. No fatigue, malaise, lethargy. No fever or chills. HEENT: Eyes: No visual changes. No eye pain. No eye discharge. ENT: No runny nose. No epistaxis. No sinus pain. No sore throat. No odynophagia. No congestion. RESPIRATORY: No cough, no congestion. No hemoptysis. CARDIOVASCULAR: No angina symptoms. No CHF symptoms. No atypical chest pain for CAD. No palpitations. No shortness of breath. GASTROINTESTINAL: No abdominal pain. No nausea or vomiting. No diarrhea or constipation. No hematemesis. No hematochezia. GENITOURINARY: No urgency. No frequency. No dysuria. No hematuria. No obstructive symptoms. No discharge. No pain. No significant abnormal bleeding. MUSCULOSKELETAL: No musculoskeletal pain; no joint swelling. NEUROLOGICAL: No headache. No neck pain. No syncope. No seizures. No dizziness. PSYCHIATRIC: Not anxious. No depression. No suicidal thoughts. No homicidal thoughts. SKIN: No rash. No lesions. No wounds. ENDOCRINE: No unexplained weight loss. No weight gain. HEMATOLOGIC/LYMPHATIC: No anemia. No purpura. No petechiae. No prolonged or excessive bleeding. No palpable lymph nodes. PHYSICAL EXAMINATION: GENERAL: The patient is lying in bed in no distress. VITAL SIGNS: Temperature 97.3, pulse 61, respiratory rate 24, blood pressure 169/67, pulse ox 94%. HEENT: Head normocephalic, atraumatic. Eyes: Extraocular muscles are intact. Pupils are equal, round and reactive to light and accommodation. Ears: No lesions. Nose appeared normal. Throat: No exudate or erythema. NECK: Supple. No JVD, no carotid bruit. No lymphadenopathy or thyromegaly. LUNGS: Decreased breath sounds, but clear. Percussion note normal. Chest symmetrical. HEART: S1, S2, no S3. No murmurs. No cyanosis or clubbing. No ascites. Pulses: Dorsalis pedis and posterior tibial pulses +1 to +2 both sides. ABDOMEN: Soft. Nontender. Bowel sounds active. No CVA tenderness. No mass felt. EXTREMITIES: No edema. Full range of motion of all extremities, equal. NEUROLOGIC: No focal deficit. Cranial nerves II through XII are grossly intact. No headache, no double vision or headache. SKIN: Not dry. Intact. Turgor - normal. LYMPHATIC: No palpable lymph nodes/no lymphedema. MUSCULOSKELETAL: Normal joints with no swelling. Muscle tone is normal. LABS: Hemoglobin 13, hematocrit 43, WBC 9,600 with normal differential. Creatinine 1, BUN 30, potassium 4.82, glucose 103. ASSESSMENT: 1. LEFT FOOT CELLULITIS, SEEMS TO BE RESOLVING PLAN: Continue the same antibiotics. The patient maybe discharged tomorrow. She may need home health care to follow up with the patient. CONDITION: Stable. The patient's blood pressure is still systolic high. The patient is on a lot of medications, Cozaar, Bystolic, Norvasc on full dose since systolic blood pressure fluctuates. Will observe her. TIME SPENT: More than 30 minutes. Plan and coordination of the patient's care discussed in the presence of nurse. ANGEL
--- NOTE | 2016-07-06 11:48 | PN ---
DATE OF SERVICE: 07/05/16 SUBJECTIVE: The patient is an 86 year old white female hospitalized with left foot cellulitis. The patient's condition has improved remarkably. Now the whole area of cellulitis has shrunken to nearly an inch and half and mildly raise area which is non-tender. There is no fluctuations noted. Obviously there is no puss there. REVIEW OF SYSTEMS: CONSTITUTIONAL: No night sweats. No fatigue, malaise, lethargy. No fever or chills. HEENT: Eyes: No visual changes. No eye pain. No eye discharge. ENT: No runny nose. No epistaxis. No sinus pain. No sore throat. No odynophagia. No congestion. RESPIRATORY: No cough, no congestion. No hemoptysis. CARDIOVASCULAR: No angina symptoms. No CHF symptoms. No atypical chest pain for CAD. No palpitations. No shortness of breath. GASTROINTESTINAL: No abdominal pain. No nausea or vomiting. No diarrhea or constipation. No hematemesis. No hematochezia. GENITOURINARY: No urgency. No frequency. No dysuria. No hematuria. No obstructive symptoms. No discharge. No pain. No significant abnormal bleeding. MUSCULOSKELETAL: No musculoskeletal pain; no joint swelling. NEUROLOGICAL: No headache. No neck pain. No syncope. No seizures. No dizziness. PSYCHIATRIC: Not anxious. No depression. No suicidal thoughts. No homicidal thoughts. SKIN: No rash. No lesions. No wounds. ENDOCRINE: No unexplained weight loss. No weight gain. HEMATOLOGIC/LYMPHATIC: No anemia. No purpura. No petechiae. No prolonged or excessive bleeding. No palpable lymph nodes. PHYSICAL EXAMINATION: GENERAL: The patient is oriented to place and person. VITAL SIGNS: Temperature 97.9, pulse 78, respiratory rate 16, blood pressure 168/84 and pulse ox 95%. HEENT: Head normocephalic, atraumatic. Eyes: Extraocular muscles are intact. Pupils are equal, round and reactive to light and accommodation. Ears: No lesions. Nose appeared normal. Throat: No exudate or erythema. NECK: Supple. No JVD, no carotid bruit. No lymphadenopathy or thyromegaly. LUNGS: Decreased breath sounds and clear to auscultation. Percussion note normal. Chest symmetrical. HEART: S1, S2, no S3. Grade II/Vi systolic murmur. No cyanosis or clubbing. No ascites. Pulses: Dorsalis pedis and posterior tibial pulses +1 to +2 both sides. ABDOMEN: Soft. Nontender. Bowel sounds active. No CVA tenderness. No mass felt. EXTREMITIES: No edema. Full range of motion of all extremities, equal. NEUROLOGIC: No focal deficit. Cranial nerves II through XII are grossly intact. No headache, no double vision or headache. SKIN: Not dry. Intact. Turgor - normal. LYMPHATIC: No palpable lymph nodes/no lymphedema. MUSCULOSKELETAL: Normal joints with no swelling. Muscle tone is normal. ASSESSMENT: 1. Left foot cellulitis resolving PLAN: 1. Discharge the patient home. 2. Decrease the Lasix to 20mg from 40mg 3. PT and OT to be done at retirement. 4. Clonidine to be added 0.1mg twice a day for systolic hypertension 5. Namenda is to be added for Dementia 10mg at night. The patient is already on Aricept. CONDITION: Stable The patient and family are agreeable. The patient needs to be in the retirement. 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 TIME SPENT: More than 30 minutes. Plan and coordination of the patient's care discussed in the presence of nurse. ANGEL
--- NOTE | 2016-07-06 12:57 | DS ---
DATE OF SERVICE: 07/05/16 FINAL DIAGNOSIS: 1. Cellulitis of foot, left 2. Hypertension 3. Chronic kidney disease, stage 3 4. Diabetes Mellitus, type 2 5. Dementia, Vascular 6. GERD 7. Aortic Stenosis, moderate 8. Congestive heart failure 9. Coronary artery bypass grafting, 2004 10. Carotid Endarterectomy 11. Atrial Fibrillation 12. Pacemaker 13. Cholecystectomy LAST VITALS: Temperature 97.9, pulse 88, respiratory 16, blood pressure 168/84 and pulse ox 95%. DISCHARGE INSTRUCTIONS: Discharge to [facility]. elevate legs. Physical and occupational therapy evaluation and treat. Vital signs daily for one week, then weekly. CBC and CMP in one week, then monthly. Lipids, Lanoxin level every 6 months. Decubitus precautions. Moisturize skin daily. Incontinent care PRN. [place] to see for optimal nutritional intake. MEDICATIONS AT DISCHARGE: [place] 5-325 one tablet PO bedtime Norvasc 10mg PO daily Artificial Tears two drops OP Q 3 hours PRN Zyrtec 10mg PO daily Vitamin D 1,000 unit PO daily Lanoxin 125mcg PO MOTUWETHFRISA@ 0900 Aricept 10mg PO QPM Lexapro 10mg PO daily [place] 3 2,000mg PO twice a day Lasix 40mg Po bedtime Ativan 0.5mg PO bedtime Cozaar 50mg PO twice a day Bystolic 5mg PO twice a day Micro-K 10meq PO daily Pravachol 40mg PO daily ALLERGIES: No known allergies NEW PRESCRIPTIONS: Keflex 500mg three times a day for 7 days Namenda 10mg at bedtime daily Clonidine 0.1mg twice a day Artificial tears Opth Solution 2 drop every 3 hours PRN dry eyes Amlodipine 10mg daily DIET INSTRUCTIONS: Regular with boost plus or equivalent supplement twice a day ACTIVITY: May go to dining room for meals. SMOKING: N/A DISEASE SPECIFIC EDUCATION: N/A, patient forgetful LABS: hgb 12.6, hct 41, WBC 11,000 normal differential, creatinine 1, BUN 37, potassium 4.1 and glucose 117. HOSPITAL COURSE: The patient is an 86 year old white female hospitalized with left leg cellulitis she has been to the point where she was complaining about it all the time. The cellulitis was practically involving the entire dorsum of the left foot. The patient had an abscess in the left knee area and took almost more than a month to heal with help with Wound Care. This time she was hospital and treated with antibiotics including Vancomycin. The patient's condition has steadily improved now. The cellulitis has localized to raise area which is indurated with no fluctuations and non-tender measuring an inch and a half size. The patient doesn't know have any evidence of any active infection anymore. The patient will discharged. She will be put on antibiotics oral Keflex for 5 to 7 days. CONDITION: Stable. PROGNOSIS: Poor. Considering the patient's multiple medical problems. The patient has elected to go to the jail with the family members agreeing with her. Her care at home has been very difficult and she is demented and forgetting to take her medications. She is also high risk for fall. The patient's medications were changed; Lasix was reduced 20mg from 40mg. PT/ OT will be done in jail. Clonidine 0.1mg new medication added, Namenda was added also 10mg at night. Aricept is to be continued. The patient is already on Cozaar, Norvasc, Bystolic. TIME SPENT: More than 60 minutes. MTDD
== END 2016-07-05 14:12 | DRG 603 ==
LOC: MEDSURG A 14:25
PROVIDERS: ADMIT Internal Medicine; ATTEND Internal Medicine
DX: L03.116 Cellulitis of left lower limb (principal); I10 Essential (primary) hypertension; I12.9 Hypertensive chronic kidney disease with stage 1 through stage 4 chronic kidney disease, or unspecified chronic kidney disease; R41.0 Disorientation, unspecified; F01.50 Vascular dementia, unspecified severity, without behavioral disturbance, psychotic disturbance, mood disturbance, and anxiety; N18.3 Chronic kidney disease, stage 3 (moderate); E11.9 Type 2 diabetes mellitus without complications; I35.0 Nonrheumatic aortic (valve) stenosis; I50.9 Heart failure, unspecified; I48.91 Unspecified atrial fibrillation; E78.5 Hyperlipidemia, unspecified; I73.9 Peripheral vascular disease, unspecified; K21.9 Gastro-esophageal reflux disease without esophagitis; Z95.1 Presence of aortocoronary bypass graft; Z98.890 Other specified postprocedural states; Z95.0 Presence of cardiac pacemaker; Z91.81 History of falling; Z79.899 Other long term (current) drug therapy
CPT/HCPCS: 36415; 80053; 80162; 80202; 81001; 85025; 93005; 93010